=== PATIENT | female | born 1960 | race Caucasian/White ===

== ENCOUNTER 2017-11-22 13:26 | Outpatient (CLI) | payer OTHER, SELFPAY ==
--- NOTE | 2017-11-28 16:07 | MMO ---
BILATERAL DIGITAL SCREENING MAMMOGRAMS: History: 57-year-old female presents for digital screening mammography. This study is interpreted with the assistance of computer aided detection. FINDINGS: Scattered fibroglandular changes are noted. Occasional typically benign calcifications. No direct or indirect evidence of malignancy. IMPRESSION: BIRADS category 2 - benign findings. Continued routine screening. POS: BA
== END 2017-11-22 13:27 | disposition home or self-care (01) ==
LOC: SCSMAMMO 13:26
PROVIDERS: ATTEND Physician Assistant
DX: Z12.31 Encounter for screening mammogram for malignant neoplasm of breast (principal); N64.4 Mastodynia
CPT/HCPCS: 77067